=== PATIENT | male | born 1950 | race Caucasian/White ===

== ENCOUNTER 2018-11-08 19:06 | Emergency (ER) | payer OTHER ==
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
--- NOTE | 2018-11-08 21:50 | Diagnostic Imaging Report ---
PAULIE ZAPATA [facility] [address] [facility] [address] [address] Report Submission Date: Nov 08, 2018 9:47:23 PM MEDICAL INSURANCE CLERK Patient Study Name: RUSLAN YI Date: Nov 08, 2018 9:20:07 PM MEDICAL INSURANCE CLERK Modality Type: CT\SR Gender: M Description: CT BRAIN W/O CONTRAST : 52 Institution: [facility] Physician: PAULIE ZAPATA Head CT without contrast Clinical history: Dizziness and headache. Diaphoresis. Technique: CT examination of the brain is performed in contiguous axial slices with sagittal and coronal reconstructions. Findings: The 4th ventricle lies in a normal midline position. The ventricles and sulci prominent secondary to atrophy. There is no hypodense or hyperdense mass or intracranial hemorrhage. Intracranial atherosclerosis is evident. Visualized paranasal sinuses and the mastoid air cells are clear Impression: 1. Atrophy. 2. Intracranial atherosclerosis. 3. No acute intracranial changes. Electronically signed on Nov 08, 2018 9:47:23 PM MEDICAL INSURANCE CLERK by: Jules BURCIAGA
--- NOTE | 2018-11-08 21:55 | Diagnostic Imaging Report ---
PAULIE ZAPATA [facility] [address] [facility] [address] [place] [id number] Report Submission Date: Nov 08, 2018 9:53:56 PM [employer]IP [employer] SUPERVISOR Patient Study Name: RUSLAN YI Date: Nov 08, 2018 9:24:00 PM [employer] SUPERVISOR Modality Type: CT\SR Gender: M Description: CT MAXILLOFACIAL W/O D : 52 Institution: [facility] Physician: PAULIE ZAPATA CT of the facial bones Clinical history: Headache. Diaphoresis. Technique: CT of the facial bones is performed in contiguous axial slices with sagittal and coronal reconstructions. Findings: Zygomatic arches are intact as are the nasal bones and the anterior maxillary spine. Bony margins of the orbits are intact. The extraocular muscles and optic nerves are symmetric. Orbital fat is preserved. Nasal septum lies in a normal midline position. The nasal airway passages are patent. Mucosal thickening is evident in the maxillary, ethmoid and sphenoid sinuses. The mastoid air cells are clear. Mandibular condyle is normally seated in the temporal fossa bilaterally. Impression: 1. Chronic paranasal sinus changes. 2. No fracture. Electronically signed on Nov 08, 2018 9:53:56 PM HOT STRIP M[employer] SUPERVISOR by: Jules BURCIAGA
[2018-11-08 22:43] LABS: BASOPHILS % 0.5 (0.0-1.5); MEAN CORPUSCULAR HEMOGLOBIN 29.9 pg (28.0-34.0); MONOCYTES % 7.8 % (0.0-11.0); eGFR (Non-African) > 60
[2018-11-08 22:48] VITALS: BP 123/77
[2018-11-08 23:05] LABS: OCCULT BLOOD,URINE NEGATIVE (NEGATIVE)
[2018-11-08 23:06] LABS: PH URINE 5.5 (5.0 - 8.0); UROBILINOGEN URINE 0.2 Eu (0.2-1.0)
== END 2018-11-08 23:13 | disposition home or self-care (01) ==
LOC: ED 19:06
DX: R61 Generalized hyperhidrosis (principal); R42 Dizziness and giddiness
CPT/HCPCS: 36415; 70450; 70486; 80053; 81002; 85025; 99282; 99284; S1016